=== PATIENT | male | born 1980 | race Caucasian/White ===

== ENCOUNTER 2018-04-28 18:46 | Emergency (ER) | payer MEDICAID ==
[~2018-04-28] VITALS: Ht 193 cm; Wt 159.1 kg
[2018-04-28 19:13] VITALS: BP 104/80; Ht 193 cm; Wt 159.1 kg
== END 2018-04-28 20:48 | disposition left against medical advice (07) ==
LOC: D.ER 18:46
DX: N48.89 Other specified disorders of penis (principal)

== ENCOUNTER → 2019-04-14 10:58 | Outpatient (CLI) | payer MEDICAID ==
[2018-04-28 19:13] VITALS: BMI 42.7
--- NOTE | ~2019-04-14 | EC ---
PATIENT:JORGE TURNER DATE OF SERVICE: 04/14/19 SEX: M MEDICAL RECORD: [id number] DATE OF : [birth year] LOCATION:D.[facility]LY [facility] AGE OF PATIENT: 38 ADMISSION DATE: 04/14/19 REFERRING PHYSICIAN: INTERPRETING PHYSICIAN: CRISTIANE TAPIA MD ECHOCARDIOGRAM REPORT ECHO CHARGES 4 ECHO COMPLETE Date: 04/14/19 CLINICAL DIAGNOSIS: EDEMA PNEUMONIA/HTN ECHOCARDIOGRAPHIC MEASUREMENTS (adult normal given) AC root (d.<3.7cm) 3.2 cm LV Septum d (<1.2 cm> 1.2 cm Valve Excursion 1.6 cm LV Septum (systole) 1.4 cm Left Atria (s.<4.0cm> 4.0 cm LVPW d(<1.2cm) 1.6 cm RV (d.<2.3cm) 3.9 cm LVPW (sytole) 2.0 cm LV diastole(<5.6CM) 5.4 cm MV E-F(>70mm/sec) cm LV systole 2.8 cm LVOT Diameter 2.4 cm MV exc.(>10mm) 1.2 cm Est.ejection fraction (50-75%) % DOPPLER: LVIT cm/sec A 111.0cm/sec E 129.0 cm/sec LA cm/sec RVSP 24 mmHg LVOT 106 cm/sec AOP1/2T m/s Asc. Ao 170 cm/sec RVOT 99 cm/sec RA cm/sec PA 165 cm/sec AV Gradient Peak 11.53mmHg AV Mean 6.23 mmHg AV Area 3.4 cm MV Gradient Peak 7.78 mmHg MV Mean 3.49 mmHg MV Area cm COMMENTS: Custodial Maintenance Worker: Angel ENCARNACION Manager Medicare Marketing: 1 Dr. Tapia TAPE# PACS Pericardial Effusion N DATE OF SERVICE: ECHOCARDIOGRAM FINDINGS: 1. Left ventricular chamber size is within normal limits. Left ventricular systolic function is normal. Overall ejection fraction estimated at 60%. 2. Left atrium is upper limits of normal at 4.0 cm. Right atrium and right ventricular chamber sizes are mildly dilated. 3. Valvular structures have normal structure and motion. ECHOCARDIOGRAM REPORT [id number] JORGE TURNER 4. Doppler interrogation reveals trace tricuspid regurgitation, no other valvular insufficiency or stenosis. Pulmonary systolic pressure estimated at 24 mmHg. 5. No evidence of pericardial effusion or left ventricular thrombus. TRANSINT:[id number] Voice Confirmation ID: [id number] DOCUMENT ID: [id number] CRISTIANE TAPIA MD CC: [id number] DICTATION DATE: 04/15/19938 [employer] PROFESSOR: 04/15/19 1609 DEP CLI 04/14/19 [facility] [address] [id number]
== END | disposition home or self-care (01) ==
LOC: D.ECHO 10:58
PROVIDERS: ATTEND Family Medicine Adult Medicine
DX: R60.0 Localized edema (principal)